=== PATIENT | male | born 1990 | race Caucasian/White ===

== ENCOUNTER 2023-07-11 18:07 | Emergency (ER) | payer OTHER, SELFPAY ==
[2023-07-11 18:09] VITALS: BP 127/83; PULSE 134; RESP 20; TEMP 36.2; O2SAT 95; BMI 30.4
--- NOTE | 2023-07-11 19:32 | CT_ITS ---
STUDY: CT ABDOMEN AND PELVIS WITH CONTRAST REASON FOR EXAM: Male, 32 years old. LLQ pain RADIATION DOSAGE (If Supplied By Facility): CTDIvol = ( 15.79 ) mGy, DLP = ( 1176.87 ) mGycm TECHNIQUE: Transaxial images were obtained from the dome of the diaphragm to the symphysis pubis without oral contrast. IV 100mL Isovue-370 was administered. Sagittal and coronal images were reconstructed. Individualized dose optimization techniques were used for this CT. COMPARISON: None. FINDINGS: The visualized lung bases are unremarkable. The visualized portions of the heart are within normal limits. Normal liver. Normal gallbladder and extrahepatic biliary system. Normal spleen. Normal pancreas. Normal bilateral adrenal glands. Normal right kidney. Normal left kidney. Normal visualized stomach. Normal small intestine. Normal colon. The appendix is visualized and appears normal. Multiple tiny mesenteric nodes without stranding in the fat likely of no significance Normal abdominal aorta. Normal inferior vena cava. Normal retroperitoneum. Normal urinary bladder. Normal abdominal wall. Normal osseous structures. CT/Abdomen/Pelvis W IV Cont ONLY IMPRESSION: No acute abnormalities of the abdomen and pelvis. Electronically Signed: Piotr Christensen MD at 20:26 EST ,
--- NOTE | 2023-07-11 19:33 | EDS_ITS ---
HPI HPI - GI History of Present Illness Chief Complaint: GI Bleed Informant: patient and spouse/S.O. Narrative Narrative: [facility]. No abdominal pain for the past 3 days, had initial loose stools turned liquid. Has been using Pepto-Bismol and noticing more dark in color. No bloody changes. Denies abdominal surgeries. Denies blood thinners. History of anxiety on Wellbutrin. Gets blood work th rough the states never told he is anemic. States only mild elevated LDL. Denies lightheaded symptoms. Denies any exertional dyspnea. [facility] Medical History (Updated 07/11/23 @ 20:[address] Eleazar Khoury DO) Anxiety Back pain Depression Home Medications pantoprazole 40 mg tablet,delayed release 40 mg PO DAILY #30 tabs 07/11/23 [Rx Last Taken Unknown] Allergy/AdvReac Type Severity Reaction Status Date / Time No Known Allergies Allergy Verified 07/11/23 18:10 Social History Smoking Status: Never smoker ROS ROS ED Constitutional Constitutional ED: Denies chills, fever(s) or sweats Eyes Eyes: Denies change in vision ENT ENT ED: Denies dysphagia or sore throat Cardiovascular Cardiovascular: Denies chest pain, leg edema, palpitations or racing heartbeat Respiratory/Chest Respiratory/Chest: Denies cough, dyspnea or dyspnea on exertion Gastrointestinal Gastrointestinal: Reports abdominal pain and diarrhea; Denies nausea or vomiting Genitourinary Genitourinary ED: Denies dysuria, hematuria or urinary frequency Musculoskeletal Musculoskeletal: Denies back pain, extremity pain or neck pain Integumentary Denies rash or wounds Neurologic Neurologic: Denies headache(s), paresthesias or weakness EXAM Physical Exam Const Vital Signs: 07/11/23 18:09 07/11/23 19:45 07/11/23 20:39 Temperature 97.2 F L Temperature Source Temporal Pulse Rate 134 H 101 H 96 Respiratory Rate 20 H 17 18 Blood Pressure 127/83 H 118/86 H 124/86 H Blood Pressure Mean 97 96 98 Pulse Ox 95 98 98 Oxygen Delivery Method Room Air Room Air Room Air Positive well nourished and well developed General Appearance ED: well developed and NAD HEENT Reports moist mucous membranes normocephalic and atraumatic Eyes PERRL, EOMs intact bilaterally and conjunctivae normal General Eye ED: Yes normal appearance of both eyes; Negative for pale conjunctiva Neck no lymphadenopathy and supple General: Negative for tenderness Chest Wall Chest: Negative for tenderness Resp normal respiratory effort and normal air movement Effort and Inspection: symmetric chest movement; Negative for respiratory distress Cardio regular rhythm and no murmurs Cardio Narrative: Heart rate 120s Rate: tachycardic Peripheral Pulses: pulses 2+ throughout GI normal to inspection, nondistended, normoactive bowel sounds and non-tender GI Narrative: Rectal with nursing present no hemorrhoids, dark speck of stool on glove, no melanotic stools. Palpation: Negative for guarding or rebound tenderness present Back/Spine no CVA tenderness and no thoracic nor lumbar tenderness Extremity normal to inspection General Extremety ED: Negative for edema or tenderness General Extremity: Negative for edema Neuro oriented x3 and no sensory deficits noted Sensorium / Orientation: awake and alert Skin no rashes or lesions noted and no wounds Skin Narrative: Slight pallor of skin. MDM MDM MDM Narrative Medical decision making narrative: Interventions / MDM: Differential diagnosis: Upper GI bleeding, electrolyte abnormalities Diagnosis considered but do not suspect: Diverticulitis however CT negative My EKG interpretation: N/A Imaging independently reviewed and interpreted by myself: CT abdomen pelvis: No inflammatory findings. No acute process. Normal appendix. Also read by radiology. External documents reviewed: N/A Test considered but not ordered:N/A ED course: Patient tachycardic on arrival tender left lower quadrant black stools however been on Pepto-Bismol. Stool guaiac sent returning positive. Labs were sent fluids given, CT scan abdomen pelvis ordered. CT scan negative. Hemoglobin 16.6. White count was 17. No urinary symptoms no cough. Likely reactive. 2039: Heart rate improved to the 90s blood pressure stable. Discussed possible upper GI bleed with his NSAID use history that is intermittent. He will avoid NSAIDs. He started on pantoprazole. [facility] will [facility] for follow-up and likely further testing with endoscopies. I discussed strict return precautions if he develops lightheaded symptoms or shortness of breath or me lanotic stools that worsens. All questions were answered. Re-evaluation: stable Disposition discussed with patient/family/significant other: Patient and significant other Case discussed with consulting clinician: N/A This note was generated with Dragon dictation software. It may contain incorrect words, spelling, and punctuation that were not noted in checking the note before signing. Lab Data Attestation: I reviewed the patient's lab results. Labs: Laboratory Results - last 24 hr 07/11/23 19:40 WBC 17.1 H RBC 5.71 Hgb 16.6 H Hct 48.6 MCV 85.1 MCH 29.1 MCHC 34.2 RDW Std Deviation 36.7 RDW Coeff of Yoel 12.1 Plt Count 324 MPV 9.1 Immature Gran % (Auto) 0.600 Neut % (Auto) 63.0 Lymph % (Auto) 14.1 L [place] % (Auto) 5.1 Eos % (Auto) 16.9 H Baso % (Auto) 0.3 Absolute Neuts (auto) 10.8 H Absolute Lymphs (auto) 2.40 Nucleated RBC % 0 Differential Comment SCANNED PT 13.7 INR 1.1 APTT 28.1 Sodium 139 Potassium 3.6 Chloride 110 H Carbon Dioxide 26.0 Anion Gap 3 L BUN 10 Creatinine 1.02 Estim Creat Clear Calc 126.94 Est GFR (MDRD) Af Amer 110 Est GFR (MDRD) Non-Af 91 BUN/Creatinine Ratio 9.8 L Glucose 94 Calcium 9.4 Antibody Screen NEGATIVE Radiography Diagnostic Testing: Clinical Impression(s) from Imaging Studies Abdomen/Pelvis CT 07/11/23 19:32 IMPRESSION: No acute abnormalities of the abdomen and pelvis. Electronically Signed: Piotr Christensen MD at 20:26 EST Reading Location ID and State: [facility] / [place] Tel , Service support , Discharge Plan Triage Chief Complaint: GI Bleed ED Provider: Eleazar Khoury Dx/Rx/DC Orders Clinical Impression: Guaiac positive stools, Abdominal pain Instructions: Abdominal Pain, ED Upper GI Bleeding (Stable) Prescriptions: New pantoprazole 40 mg tablet,delayed release (DR/EC) 40 mg PO DAILY Qty: 30 0RF [facility] [Primary Care Provider] - 3-5 Days Activity Restrictions/Additional Instructions: CT scan negative for any inflammatory findings. Your hemoglobin 16.1. Your stool guaiac was positive. Avoid your Excedrin or any NSAIDs. May use Tylenol as needed. Use pantoprazole as prescribed. Call follow[facility]up with [facility] for likely further testing as an outpatient. If you develop worsening black stools that becomes tarry or become symptomatic with lightheaded symptoms or dyspnea, return to the ED for reevaluation. Disposition Disposition: Home, Self Care
[2023-07-11] MEDS: 0.9% Normal Saline (1000mL) 1,000 ML 1000 ML IV (19:38)
[2023-07-11 19:45] VITALS: BP 118/86; PULSE 101; RESP 17; O2SAT 98
[2023-07-11 19:50] LABS: Absolute Neutrophil Count 10.8 X10^3/uL (2.0-7.7); Basophil# 0.05 X10^3/uL; Basophil% 0.3 % (0-1); Eosinophil# 2.89 X10^3/uL; Eosinophils% 16.9 % (0-5); Hematocrit 48.6 % (40-54); Hemoglobin 16.6 g/dL (13.0-16.5); Lymphocyte % 14.1 % (19-41); Mean Corp Hgb Conc 34.2 g/dL (32-36); Mean Corpuscular Hgb 29.1 pg (27.0-32.0); Mean Corpuscular Volume 85.1 fL (80-94); Mean Platelet Vol. 9.1 fl (6.2-12.0); Monocyte# 0.87 X10^3/uL; Monocyte% 5.1 % (0-10); NRBC Flagged by Analyzer 0 % (0-5); Neutrophil # 10.76 X10^3/uL (2.7-7.7); POSITIVE DIFFERENTIAL YES; Platelet Count 324 K/mm3 (150-450); RBC Distribution Width CV 12.1 % (11.6-14.6); RBC Distribution Width SD 36.7 fl (35.1-43.9); Red Blood Count 5.71 M/mm3 (4.6-6.2); White Blood Count 17.1 K/mm3 (4.4-11.0)
[2023-07-11 19:59] LABS: International Normalized Ratio 1.1; Prothrombin Time (Protime)PT. 13.7 SECONDS (11.7-14.9)
[2023-07-11 20:00] LABS: Partial Thromboplast Time 28.1 Seconds (24.1-36.2)
[2023-07-11 20:03] LABS: Anion Gap 3 (5-15); BUN 10 mg/dL (7-18); BUN/Creat Ratio 9.8 RATIO (10-20); Calcium,Total 9.4 mg/dL (8.5-10.1); Chloride 110 mmol/L (98-107); Creatinine, Serum 1.02 mg/dL (0.70-1.30); EST Glomerular Filtration Rate 91 mL/min (>60); Est Glom Filt Rate - Afr Amer 110 mL/min (>60); Estimated Creatinine Clearance 126.94 ml/min; Glucose 94 mg/dL (74-106); Potassium 3.6 mmol/L (3.5-5.1); Sodium Level 139 mmol/L (136-145)
[2023-07-11 20:13] LABS: Differential Indicated SCAN CRITERIA MET
[2023-07-11 20:14] LABS: Differential Comment SCANNED
[2023-07-11 20:39] VITALS: BP 124/86; PULSE 96; RESP 18; O2SAT 98
[2023-07-11 20:55] VITALS: BP 122/80; PULSE 87; RESP 14; TEMP 36; O2SAT 98
--- NOTE | 2023-07-12 10:54 | ED.RN ---
[facility] CALLED TO CONFIRM PT DATE OF , IT DIFFERED FROM WHAT THEY HAD. PT WAS AT [facility] AT THE TIME OF THE CALL AND STATED IT IS 1992, NOT 1992 WE HAVE IN OUR COMPUTER. THE ADDRESS AND EMERGENCY CONTACTS WERE CONFIRMED CORRECT.
== END 2023-07-11 21:01 | disposition home or self-care (01) ==
PROVIDERS: Emergency Provider Emergency Medicine; Visit Provider Emergency Medicine
DX: R19.5 Other fecal abnormalities (principal); R10.32 Left lower quadrant pain
CPT/HCPCS: 74177; 80048; 82274; 85025; 85610; 85730; 86850; 86900; 86901; 96360; 99283; J7030; Q9967; A4216